=== PATIENT | female | born 1985 | race Caucasian/White ===

== ENCOUNTER 2023-03-22 08:00 | Outpatient (RCR) | payer OTHER, SELFPAY ==
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
[2023-03-22 12:04] VITALS: BP 143/93; PULSE 70
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
--- NOTE | 2023-03-22 12:28 | BH.DR.ITP ---
Initial Treatment Plan Patient Information Visit Information: ADMISSION DATE: EXPECTED LOS: 4-6 weeks Problems/Symptoms Problem #1:: Depression Symptom:: Sadness, hopelessness, worthlessness, biological disruption of sleep and appetite, fatigue, decreased concentration, guilt, passive thoughts of Problem #2:: Anxiety Symptom:: Worry, rumination, panic attacks
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
--- NOTE | 2023-03-23 09:05 | BH.SGPN.GN ---
Behaviors/Verbalizations/Mental Status: [] Eye contact is good. Motor activity is appropriate. Appearance is casual. Speech is Appropriate. Mood is depressed. Affect is congruent. Thoughts are linear and logical. No evidence of psychosis. Reviewed daily check in sheet and no reports of suicidal ideations or intent. Client Response/Progress/Benefit: [] Pt was an active participant in group discussion. Attentive. Daily symptom tracker notes 4/5 for depression and irritability. Also notes 1/5 for self-harm urges. Tearful at times during her check-in. It has been challenging for her to manage daily tasks especially when things do not go as planned. Has responsibilities she feels compelled to complete despite her mental health struggles. As this is her first process group she shared a little about herself and her reasons for entering IOP with peers. Limited progress noted as this was her second day in IOP. Group provided support, encouragement, and feedback on what to expect her first day/week in IOP which was beneficial. Will continue in IOP to prevent decompensation, stabilize mood, and improve functioning. Narrative Note: []
--- NOTE | 2023-03-23 10:20 | BH.SGPN.GN ---
Behaviors/Verbalizations/Mental Status: []Pt alert and oriented, neatly dressed and groomed. Eye contact good. Motor activity appropriate. Speech within normal limits. Affect congruent, mood engaged and anxious. Thoughts linear, logical, no signs of hallucinations or delusions. Client Response/Progress/Benefit: [] Client connected with topic of Anxiety and participated throughout, providing input and taking notes. Participated throughout interactive discussion defining anxiety and identifying cognitive and physiological symptoms of anxiety. Group discussed how anxiety can prevent them from trying new things. Common physical and cognitive symptoms identified by group included: ?what if thoughts?, ?fear of failure?, negative self-talk, increased heart rate, restlessness, and getting sick more frequently. Pt stated she has noticed a lot more health issues arise due to her anxiety. Benefited from increased awareness and insight on anxiety and its impact. Pt will continue IOP tx to prevent decompensation, improve daily functioning, and gain healthy coping skills. Narrative Note: []
--- NOTE | 2023-03-23 11:15 | BH.SGPN.GN ---
Behaviors/Verbalizations/Mental Status: []Pt alert and oriented, casual appearance. Eye contact fair. Motor activity appropriate. Speech within normal limits. Affect constricted, mood anxious. Thoughts linear, logical, no signs of hallucinations or delusions. Client Response/Progress/Benefit: [] Pt was an active participant AEB pt providing input and listening attentively to peers. Attentive during psychoeducation on mindfulness coping skills and their impact on reducing anxiety and improving overall mental health wellness. Group was able to identify self-soothing and mind-based coping skills which included: 5-senses, meditation, deep breathing, journaling, and progressive muscle relaxation. Pt also participated with peers in practicing mindfulness skills in session. Pt would like to work on fresh air, mindful eating, yoga, and progressive muscle relaxation to help manage anxious symptoms. Appeared to benefit from increasing repertoire of anxiety reduction skills. Pt will continue in [facility] tx to continue building healthy coping skills, challenge distorted thoughts, and prevent decompensation.
--- NOTE | 2023-03-24 13:22 | BH.COMM ---
Communication Note Communication with Client Communication Note: Group was cancelled today due to not enough group members attended today. Met with client to gather background information, identify treatment goals, and build rapport. Client stated she is so far enjoying the program because she has already learned a lot in just attending for 2 days. Client reported she is struggling with adjusting to finding out her wants a divorce 6 weeks ago. 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 Client stated her is living in an apartment that is next door to her record shop which she states complicates her situation. Client reported it has been a challenge knowing her is next door to her while she is struggling to function. Client stated she is able to complete basic responsibilities and is able to take care of her three children. Client connected with psychoeducation about cognitive triangle and behavior activation. client stated she hasn't been engaging in activities she used to enjoy prior to 6 weeks ago. Client reported she used to go to yoga weekly, but hasn't gone in the last 3 months. 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 client reported yesterday she was able to have a successful event at her shop and made herself dance before she closed down. Client connected how using opposite action last night helped improve her mood. Client stated she hasn't been going to yoga because she fears that she will emotionally break down during class because she is feeling very vulnerable. Client worked with therapist to develop plan to do a yoga session at her house this weekend and will work towards getting back to the yoga studio. Client stated while in IOP she would like to learn how to manage her anxious and depressed symptoms. Client reported she needs to learn who she is now that her relationship is ending because she saw part of her identity for the last 20 years as .
--- NOTE | 2023-03-24 13:35 | BH.MTP ---
Master Treatment Plan Patient Information Program Physician:: Dr. White Primary Therapist:: Mary Tolentino, [facility] Psychiatric Diagnoses Psychiatric Diagnoses:: 1. Major depressive disorder, recurrent, severe without psychosis 2. Panic disorder 3. Primary support, work and financial issues Diagnosis Code(s):: F33.2 Estimated LOS Estimated LOS (in weeks):: 6 Problem/Goal #1 Problem/Goal #1 Stated Goal:: Client will reduce depressive symptoms, passive thoughts of , and anhedonia due to Major Depressive Disorder through Intensive Outpatient Program. Description of Barriers: Potential barriers include negative thinking, anxious thought patterns, and stress over navigating relationship loss. Functional Impact: The patient is a 37-year-old female who has been for 14 years who has a history of depression and anxiety. She was referred by a friend for worsening symptoms in the past month. The patient's worsening of symptoms was triggered by her announcing that he was unhappy in their marriage and leaving 6 weeks ago. The patient was surprised by this and is having a hard time adjusting. She is having a hard time functioning at work and is having a hard time getting her activities of daily living accomplished at home. She admits to sadness and crying. She also endorses hopelessness, worthlessness, guilt and decreased concentration. She has low energy and decreased appetite and has lost 10 pounds in the past 6 weeks. Her sleep has decreased to about 3 to 5 hours a night and she is tired during the day. Objectives Objective #1: Stated Objective: Client will learn and utilize 2-3 healthy coping strategies to manage depressive symptoms. Interventions: Therapist will utilize CBT techniques to assist client with understanding the connection between thoughts, feelings and behaviors. Education will be provided on behavioral activation. Therapist will assist client in learning internal coping strategies to manage depressive symptoms, along with helping client identify triggers. Discharge Criteria: Client will have achieved this goal when can verbalize and has practiced at least 2 healthy coping strategies that successfully manage depressive symptoms. Target Date: 05/03/23 Review Date: 04/19/23 Objective #2: Stated Objective: Client will identify and replace 2-3 negative thinking patterns that reinforce depressive symptoms. Interventions: Therapist and group therapy will assist client in developing an awareness of the cognitive messages that reinforce depressive thinking. Therapist will also assist client in challenging negative thinking patterns. Discharge Criteria: Client will have achieved this goal when can identify at least 2 negative thinking patterns, replace negative thinking with more positive, affirmative messages. Target Date: 05/03/23 Review Date: 04/19/23 Problem/Goal #2 Problem/Goal #2 Stated Goal:: Client will reduce overall frequency, intensity, and duration of the anxiety so that daily functioning is not impaired.? Description of Barriers: Potential barriers include negative thinking, anxious thought patterns, and stress over navigating relationship loss. Functional Impact: The patient is a 37-year-old female who has been for 14 years who has a history of depression and anxiety. She was referred by a friend for worsening symptoms in the past month. The patient's worsening of symptoms was triggered by her announcing that he was unhappy in their marriage and leaving 6 weeks ago. The patient was surprised by this and is having a hard time adjusting. She is having a hard time functioning at work and is having a hard time getting her activities of daily living accomplished at home. She admits to sadness and crying. She also endorses hopelessness, worthlessness, guilt and decreased concentration. She has low energy and decreased appetite and has lost 10 pounds in the past 6 weeks. Her sleep has decreased to about 3 to 5 hours a night and she is tired during the day. Objectives Objective #1: Stated Objective: Client will learn and implement 2-3 calming skills to reduce overall anxiety and manage anxiety symptoms. Interventions: Therapist and group sessions will help client identify physiological warning signs of anxiety, increase awareness of thoughts that increase anxiety, and identify behaviors that reinforce anxious symptoms. Group and individual counseling will teach client calming skills to help manage anxious symptoms. Discharge Criteria: Client will have achieved this goal when can verbalize at least 2 calming skills and reports skills successfully help reduce anxious symptoms. Target Date: 05/03/23 Review Date: 04/19/23 Objective #2: Stated Objective: Pt will decrease anxious symptoms AEB pt?s score on the DSM 5 cross-cutting measure improve pt?s daily functioning. Interventions: Through groups and individual therapy, pt will be provided education about anxiety?s impact on body and common physiological reaction to anxiety. Therapist will teach pt appropriate breathing techniques and build healthy coping skills to manage daily anxieties. Discharge Criteria: Pt will have met this goal when pt?s score on the DSM 5 cross cutting measure for anxiety has been decreased and per pt?s report daily functioning has improved. Target Date: 05/03/23 Review Date: 04/19/23
--- NOTE | 2023-03-27 09:05 | BH.SGPN.GN ---
Behaviors/Verbalizations/Mental Status: [Patient was alert and oriented, appropriately dressed and groomed. Eye contact was good, motor activity normal, speech within normal limits. Affect congruent, mood content. Thoughts linear, logical, no signs of hallucinations or delusions. Reviewed Patients symptom tracker and the patient reports depressed mood, anxiety/panic attacks, agitation/irritability/anger, self-harm risk, and thoughts/risk of suicide within normal limits.] Client Response/Progress/Benefit: [Patient was engaged and open to the discussion. Patient reported her mood to be ?fragile?. 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 Patients second win is that she took her daughters to her parents? house for dinner and that it went well. 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 Patient was interactive and respectful with other group members about their mental wins and stressors. Patient benefited from the discussion by listening to feedback and giving input on her peer?s stressors and mental health wins. Patient will continue with IOP treatment to help develop healthy skills, promote mood stability, and improve distress tolerance. ] Narrative Note: []
--- NOTE | 2023-03-27 10:15 | BH.SGPN.GN ---
Behaviors/Verbalizations/Mental Status: []Eye contact is good. Motor activity is appropriate. Appearance is casual. Speech is Appropriate. Mood is depressed and engaged. Affect is congruent. Thoughts are linear and logical. No evidence of psychosis Client Response/Progress/Benefit: [] Pt was an active participant in group discussions AEB listening attentively to others and providing feedback at times. Participated in and was engaged during experiential activity. Able to relate activity to group topic of FOF. Engaged during interactive discussion on what failure means to the group in which peers identified and defined failure. Group was able to identify impact of fear of failure on mental health. Attentive during interactive discussion on the role that FOF plays in mental wellness, depression, anxiety, and growth. Pt reported fear of failure has kept pt stuck in her life at times. Benefited from increased awareness of how the role that FOF plays in mental health and decision-making. Will continue in IOP to prevent decompensation, improve daily functioning, and combat distorted thinking patterns. ? Narrative Note: []
--- NOTE | 2023-03-27 11:15 | BH.SGPN.GN ---
Behaviors/Verbalizations/Mental Status: []Pt alert and oriented, casually dressed and groomed. Eye contact good. Motor activity appropriate. Speech within normal limits. Affect congruent, mood depressed and anxious. Thoughts linear, logical, no signs of hallucinations or delusions. Client Response/Progress/Benefit: [] Pt responded well to session, engaged in the experiential activity and attentive throughout group processing. Pt reported fear of failure has kept Pt from healing and coping with the end of her marriage. Pt completed fear of failure worksheet and was able to identify thoughts and behaviors that reinforce personal fear of failure including self-doubt, over-reliance on past life, and staying stuck in the what if mindset. Pt participated in group discussion regarding strategies to overcome fear of failure. Identified wanting to work on practicing positive self-talk and focusing on giving herself credit for each moment of progress she makes. Appeared to benefit from increased knowledge of strategies to combat fear of failure and gaining self-awareness. Pt will continue IOP tx to improve mood stability, reduce negative thinking, and prevent decompensation. Narrative Note: []
--- NOTE | 2023-03-30 10:15 | BH.SGPN.GN ---
Behaviors/Verbalizations/Mental Status: []Pt alert and oriented, casually dressed and groomed. Eye contact good. Motor activity appropriate. Speech within normal limits. Affect congruent, mood anxious and depressed. Thoughts linear, logical, no signs of hallucinations or delusions. Client Response/Progress/Benefit: []Pt was an active participant in group discussion and activity. Attentive during psychoeducation. Along with peers, pt was able to identify barriers to taking action in their life. Identified several symptoms and stressors that she feels are holding her back from progress such as codependency, putting other's needs before her own, denial, and unrealistic expectations of herself and others. Stated these things have kept pt from making healthy changes, remaining in an unhealthy relationship and now struggling to cope with it's end, as well as not taking chances for herself. Pt shared that she wants to begin addressing the impact denial and putting other's first has had on her ability to take action. Benefited from increased self-awareness of obstacles. Will continue IOP tx to improve mood management, promote consistent skill application, and further reduce negative thinking. Narrative Note: []
--- NOTE | 2023-03-30 16:06 | BH.MDN_ITS ---
Multi-Disciplinary Note Note 60-min Individual: Time Started:: 11:10 Date: 03/30/23 Purpose of session/treatment goals addressed:: Purpose of session was to address goals 1 and 2 from MTP. 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 Client stated she follow through with plan discussed earlier with therapist to go to [place] the night before and have her stay with the kids to give her time in the morning to prepare to be on the news. Client reported following the news clip she felt very positive and was doing well. Client stated her mood dropped after having a meeting with her and their traveling accountant about their businesses. Client reported she is having a difficult time when she is around him to not get emotional and go off on him. Client reported this is not who she is in regards to having arguments and yelling at others but she is having a hard time processing these intense emotions because is not something she is ever experienced. Client stated her 's lack of reaction and appearance of being fine during the separation adds an additional layer of sadness and frustra tion and anger. Client could connect that they are both in very different places in regards to the relationship and from her perspective her has always kept her arms of the way so their attachment to each other is likely different. Client shared that her and also has struggled with alcohol use since he was in his teens. Client stated she did not start to talk about his heavy use of alcohol into the last couple years because it has gotten worse in which she drinks daily and was drinking at work. Client reported in the last couple months she has been more vocal about wanting him to go to rehab and get treatment. 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 Client stated the neck very next day her packed up and told her that he was done with the relationship. Client connected with psychoeducation about the impact of alcohol on neurobiology and how when someone is addicted to his substance that substance becomes there everything. Client stated he started to connect the negative impact his alcohol use throughout their marriage has negatively impacted the relationship. Client reported in the past she was able to manage his use and did not always see obvious consequences to it. Client stated more recently she was able to see how his alcohol use likely contributed to him not being able to tattoo or do art anymore and ultimately ended in him signing away the shop ownership to somebody else. Client stated she is really having a hard time accepting that he does not want to get treatment to help himself which then would help the relationship. Client reported she continues to struggle with figuring out who she is without him. Client stated her emotions are so intense that she does not know what to do with them and has panic attacks that hinder her ability to function. Client stated she is more open to starting a medication that could benefit her when the anxiety is starting to increase to uncontrollable amounts. Therapist encouraged client to focus on what is within her control currently and focus on what she needs to maintain her basic needs at this point. Client agreeable to continue routine of getting back into yoga at home, dancing, listening to music, and eating 3 meals a day. Risks/Concerns:: Denies suicidal ideation, plan, and intention. Identifies her 3 daughters to be protective factors. Future oriented. Progress Toward Goals/Plan:: Progress is variable. Client is still processing recent separation from her and is having erratic mood shifts throughout her day. Client continued to have panic attacks associated with the loss of this relationship. 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 Plan is for client to discuss starting medications with the [facility] psychiatrist. Client to continue IOP to continue support, build healthy coping skills, and prevent decompensation. Time Stopped:: 12:30
--- NOTE | 2023-04-03 09:05 | BH.SGPN.GN ---
Behaviors/Verbalizations/Mental Status: [Patient was alert and oriented, appropriately dressed and groomed. Eye contact was good, motor activity normal, speech within normal limits. Affect congruent, mood content. Thoughts linear, logical, no signs of hallucinations or delusions. Reviewed Patients symptom tracker and the patient reports depressed mood, anxiety/panic attacks, agitation/irritability/anger, self-harm risk, and thoughts/risk of suicide within normal limits.] Client Response/Progress/Benefit: [Patient was engaged and open to the discussion. Patient reported her mood to be ?content?. 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 Patients second win was that she has reflected on herself in the past 2 weeks and has realized that she has made progress and has been feeling the affects of group and sessions. Patients stressor was that she had to confront someone her and her has been friends with about something and this was hard for her. Patient was interactive and respectful with other group members about their mental wins and stressors. Patient benefited from the discussion by listening to feedback and giving input on her peer?s stressors and mental health wins. Patient will continue with IOP treatment to help develop healthy skills, promote mood stability, and improve distress tolerance. ] Narrative Note: []
--- NOTE | 2023-04-03 10:10 | BH.SGPN.GN ---
Behaviors/Verbalizations/Mental Status: []Pt alert and oriented, casually dressed and groomed. Eye contact good. Motor activity appropriate. Speech within normal limits. Affect congruent, mood euthymic. Thoughts linear, logical, no signs of hallucinations or delusions. Client Response/Progress/Benefit: []Pt was an active participant during interactive group discussions. Attentive during psychoeducation on the six types of boundaries. Pt along with peers contributed to interactive discussion on defining what a boundary is and group identified challenges to setting boundaries. Group reviewed the 6 types of boundaries. Pt shared boundaries are hard for her because it is easier to address the needs of others. Pt stated she recognizes boundaries are important for improved relationships. Pt benefited from increased awareness and insight on the importance/benefit to setting health boundaries. Will continue IOP tx to improve confidence, challenge distortions, and prevent decompensation.
--- NOTE | 2023-04-03 11:15 | BH.SGPN.GN ---
Behaviors/Verbalizations/Mental Status: []Pt alert and oriented, casually dressed and groomed. Eye contact good. Motor activity appropriate. Speech within normal limits. Affect congruent, mood content. Thoughts linear, logical, no signs of hallucinations or delusions. Client Response/Progress/Benefit: [] Pt responded well to session AEB listening attentively to peers and providing input throughout. Pt attentive during psychoeducation on the different boundary styles. Pt identified she tends to be more porous as pt takes on other people?s problems and tries to fix them. Pt was given a handout on strategies for healthy boundary setting. Identified wanting to practice being assertive with her needs ?because I do care? and to remind herself of the reasons why she is setting boundaries. Appeared to benefit from increasing insight to boundary setting and the impacts on mental health. Seemed to benefit from increased awareness of boundary styles and strategies to improve setting boundaries. Will continue IOP tx to improve mood stability, reduce negative thinking patterns, and increase self-compassion strategies. Narrative Note: []
--- NOTE | 2023-04-05 10:15 | BH.SGPN.GN ---
Behaviors/Verbalizations/Mental Status: []Pt alert and oriented, casually dressed and groomed. Eye contact good. Motor activity appropriate. Speech within normal limits. Affect congruent, mood euthymic. Thoughts linear, logical, no signs of hallucinations or delusions. Client Response/Progress/Benefit: [] Pt receptive of session, actively engaged throughout AEB taking notes, providing input, and contributing in small group discussion. Appeared to connect with group topic of cognitive distortions and the impact of thought patterns on mental health, coping behaviors, and relationships. Pt connected most with distortions of personalizing, shoulds, and over-generalizing. Pt reports she is getting better with catching her negative thinking patterns. Pt able to identify how these distortions impact functioning. Pt appeared to benefit from gaining insight on distorted thinking patterns and how this impacts overall mental health. Will continue IOP tx to prevent decompensation, improve daily functioning, and increase distress tolerance skills. Narrative Note: []
--- NOTE | 2023-04-05 11:15 | BH.SGPN.GN ---
Behaviors/Verbalizations/Mental Status: [] Eye contact is good. Motor activity is within normal limits. Appearance is casual. Speech is Appropriate. Mood is depressed and anxious. Affect is congruent. Thoughts are linear and logical. No evidence of psychosis. Client Response/Progress/Benefit: [] Pt was an active participant during group discussions and activity. Pt was placed in a smaller group and participated in quiz-show format in which small groups competed against each-other to answer questions based on identifying, challenging, and reframing cognitive distortions. Pt was engaged in the smaller group, participated in group interactions to brainstorm answers, and appeared to be comprehending cognitive distortions. Stated learning that ?I think I use the distortion of 'jumping t conclusions' for safety, but it seems to actually set me up for disappointment?. Benefited from gaining further insight and awareness of cognitive distortions as well as practicing ways to reframe and challenge thoughts. Will continue in IOP to promote use of behavior activation skills, stabilize mood, and improve ability to function. Narrative Note: []
--- NOTE | 2023-04-05 11:42 | PCM.BH.PN ---
Progress Note Progress Note: History of Present Illness/Interim History: The patient is a 37-year-old female who has been for 14 years and has a history of depression and anxiety. I last saw the patient 2 weeks ago when she is seen in follow-up today at the [facility] behavioral health IOP. 2 weeks ago the patient refused any medication as she wanted to just work on the therapy aspect. However according to the staff last week the patient struggled and did call the IOP a number of times for extra support. The patient states today that she feels she is learning valuable skills in the program but she is still somewhat overwhelmed by the fact that her left her and her 3 kids 8 weeks ago and wants to at least remain legally . 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 She still has crying spells but feels that overall she is able to function better lately according to the patient. She states that she is eating better and her weight is stable now and she is no longer losing weight. She does have initial insomnia only and she is sleeping about 5 to 6 hours a night but it takes her an hour or 2 to get to sleep sometimes. She has not had any panic attacks since last week and was having them once a day. She denies passive thoughts of for the past week now. She denies also suicidal ideation, plan for suicide, homicidal ideation, hallucinations or delusions. Current Psychiatric Medications: [] None Mental Status Examination: [] The patient is a 37-year-old female who appears normal for stated age and is casually dressed and groomed with good hygiene. She has 2 tattoos visible still on her neck and under her chin. She has no psychomotor agitation or retardation and is ambulatory with a normal gait. She is cooperative and pleasant during the interview. Eye contact is good and speech is normal rate and rhythm and fluent with no pressure. Mood is depressed and anxious. Affect is constricted. Thought process is goal-directed and organized. Thought content: There is no evidence of passive thoughts of , suicidal ideation, plan for suicide, homicidal ideation, hallucinations or delusions. Reality testing is intact. Judgment is intact. Insight is fair and improving. Impulsivity is low. Diagnoses: [] 1. Major depressive disorder, recurrent, severe without psychosis 2. Panic disorder 3. Primary support, work and financial issues Plan: [] The patient will continue the IOP in behavioral health at [facility] as the structure, support, education and group therapy will hopefully prevent worsening of the patient's symptoms which could require hospitalization. She felt safe during the interview and if it anytime she does not feel safe she will let us know or go to the emergency room. The risk, options, possible complications and side effects of the medications were discussed with the patient and she understands and accepts these. She was unable to find the name of the medication she took in 2016 that made her feel like a zombie. She obtained her TSH and vitamin D levels but we have not received the results from [facility]. She will continue to decrease caffeine use after 12 noon and eliminate it completely. She agrees to try Lexapro 5 mg p.o. daily and prescription is sent in for this. I will see the patient in follow-up in 2 weeks and she will continue to follow-up with her outpatient providers.
--- NOTE | 2023-04-05 15:45 | BH.MDN_ITS ---
Multi-Disciplinary Note Note 60-min Individual: Time Started:: 09:05 Date: 04/05/23 Purpose of session/treatment goals addressed:: Purpose of session was to address goals 1 and 2 from MTP. Eye Contact:: Good Motor Activity:: Restless Appearance:: Neat and Casual Speech:: Appropriate Mood:: Anxious and Other (sad) Affect:: Congruent Thoughts:: Linear, Logical and No evidence of hallucinations/delusions noted Staff Interventions:: CBT techniques, rapport building, strengths perspective, goal setting and taught coping skills (positive affirmations. 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 Client stated although she is not back to herself she was able to manage her emotions throughout those situations and not have a panic attack or emotional breakdown. Client stated on Monday which was her birthday she did struggle more emotionally because it took a while before her reach out to her to wish her happy birthday and it is her first birthday of them not being together. Client stated she did send some angry text towards him and is frustrated with herself because how she is responding to him is not who she is. Client reported in the moment she really struggles with managing her emotions and then in reflection realizes what she did was not helpful. Client stated yesterday was the first day in a long time in which she felt like she lived a full day without having a panic attack or emotional breakdown. 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 Client reports she is feeling a little better today but still struggling with the roller coaster of emotions. Client said she thinks it be beneficial for her to work on her view of self and confidence because she realizes she put a lot of her worth into her relationship and now that the relationship is ending she does not feel confident with most of the things in her life. Client gave example on Monday after group she was in the other store but she drove to 3 different stores because she could not be confident in the decision she was making a list or to go to. Client stated in the past when she was with her he would tell her what store she should go to which would validate her decision. Client agreed she needs to really focus on internal validation by starting small with decision making in regards to what store to go to for groceries. Client worked with therapist to develop a positive affirmation that she will post in her car that she consider herself when she goes to make a decision. Client wrote down her affirmation on a Post- it note and stated she will put it in her car today. Client also agreeable to identify several skills that she would like to utilize a more consistent basis by putting on a daily chart and when she comes in IOP she will gloria which days she utilized that skill or strategy. Client identified for this week her skills will be yoga, connection, breathing and mindfulness, and journaling. Risks/Concerns:: Denies suicidal ideation, plan, and intention. Future oriented. Identifies daughters as reasons to live. 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 Client still struggles with the roller coaster of emotions related to the separation from her . Client engaging in more aggressive style communication when feeling hurt and frustrated by her . Client stated her response to him is uncharacteristic of her and she really wants to work on managing her emotions more effectively when triggered. Plan is to build confidence in her decision making and decreased need for external validation. Client to continue IOP to continue building healthy coping skills, build confidence, and prevent decompensation. Time Stopped:: 10:10
== END 2023-04-05 23:59 ==
LOC: BHIOP 08:00
PROVIDERS: PCP Registered Nurse; Referring Provider Psychiatry & Neurology Psychiatry; Visit Provider Psychiatry & Neurology Psychiatry
DX: F33.2 Major depressive disorder, recurrent severe without psychotic features (principal); F41.0 Panic disorder [episodic paroxysmal anxiety]
CPT/HCPCS: S9480; 90837; 90853

== ENCOUNTER 2023-04-06 07:50 | Outpatient (RCR) | payer OTHER, SELFPAY ==
[2023-04-06 00:59] VITALS: BP 143/93; PULSE 70
--- NOTE | 2023-04-10 10:10 | BH.SGPN.GN ---
Behaviors/Verbalizations/Mental Status: []Pt alert and oriented, causally dressed and groomed. Eye contact good. Motor activity appropriate. Speech within normal limits. Affect congruent, mood euthymic. Thoughts linear, logical, no signs of hallucinations or delusions. Client Response/Progress/Benefit: [] Pt was actively engaged, providing input, and taking notes throughout session. Connected with the topic of pitfalls and listened to group discussion on internal and external barriers that prevent from choosing a healthier path to mental wellness. Group worked together to identify examples of personal internal pitfalls and pt identified theirs as all or nothing thinking, self-doubt, co-dependency, and low self-worth. Pt benefited from group as pt learned to better identify and normalize potential barriers to improving mental health symptoms. Pt also gained awareness of the difference between external triggers and self-sabotaging behaviors. Pt will continue IOP tx to continue use of healthy coping skills, improve view of self, and prevent decompensation.
--- NOTE | 2023-04-10 10:19 | BH.MDN ---
Multi-Disciplinary Note Note 45-min Individual: Time Started:: 09:02 Date: 04/10/23 Purpose of session/treatment goals addressed:: Purpose of session was to address goals 1 and 2 from MTP. Eye Contact:: Fair Motor Activity:: Appropriate Appearance:: Casual Speech:: Appropriate Mood:: Dysthymic Affect:: Constricted Thoughts:: Linear, Logical and No evidence of hallucinations/delusions noted Staff Interventions:: thought challenging, psychoeducation on: (codependency), CBT techniques, strengths perspective and other (reviewed coping skills) Client Response:: Client reported since last week she has been doing overall better with daily functioning. Client stated she has been able to engage with her kids and function at work. Client stated she still has moments in which she feels very sad and angry about the separation but the last few days she has done better with not being reactive towards her . Client reported she did start her new medication last week and is still adjusting to it unsure of if it is making her feel more shaky today. Client connected with therapist encouragement to not hyperfocus on potential side effects of the medication because anxiety can often create things that are not there. Client encouraged to just keep an eye on the things like feeling shaky and keep therapist updated if she notices more potential side effects. Client stated yesterday she did feel very productive at home with cleaning and her appetite was improved. Client reported she still is anxious about having to talk to her and her scarrer about potential divorce and dissolution in terms. Client stated she is feeling more mentally ready to start thinking about that now that she is had time to process many of her emotions about the separation. Client stated she thinks she can make a more solid decision once she sees all of her options based on what her scarrer proposes to her. Client reported she did work on intensity and being more confident in her decision making in the last 5 days and did put up to sticky note of the affirmation she created last week. Client receptive to learning about codependency and connected with all of the examples of codependency. Client stated she connected most with the example investing a lot of energy and time into caring for a partner with an alcohol problem. Client could connect how codependency behaviors have impacted her own mental health and functioning. Client stated she does feel like it would be helpful for her to understand herself better now that she has to get used to being more independent away from her . Therapist provided psychoeducation about core beliefs and mistaken believes and the impact beliefs that can have on view of self and behaviors. Client stated she feels like she is in a place in which she can explore her mistaken beliefs now and believes it could really helpful for her moving forward. Client agreeable to complete provided homework in which she is to score each question provided on a scale of 0-4 with 4 meaning strongly agree and 0 meaning not at all. Risks/Concerns:: Client denies suicide ideation, plan, or intention. Future oriented. Progress Toward Goals/Plan:: Progress noted with client reporting improved functioning at home and work and improved ability in the last few days with emotion regulation especially when having to interact with her . Client continues to report still not feeling like herself but feels able to engage her rational thoughts more compared to the last few weeks when she was stuck in emotional mind. Client stated she has not had an emotional outburst towards her since last Monday which denotes progress with emotion regulation. Client is to continue IOP to work on identifying and challenging negative thought patterns, improve view of self, and prevent decompensation. Time Stopped:: 09:50
--- NOTE | 2023-04-10 11:10 | BH.SGPN.GN ---
Behaviors/Verbalizations/Mental Status: []Pt alert and oriented, neatly dressed and groomed. Eye contact good. Motor activity appropriate. Speech within normal limits. Affect congruent, mood euthymic. Thoughts linear, logical, no signs of hallucinations or delusions. Client Response/Progress/Benefit: [] Pt receptive of session, engaged throughout AEB actively contributing and listening to discussion, as well as taking notes. Pt participated in the experiential activity and processed with group how their emotions, perspective, and reactions positively and negatively impacted the outcome. Pt identified pitfalls they struggle with and shared wanting to work on pitfall of co-dependency by identifying her needs so she can verbalize them in the future. Benefited from identifying personal pitfalls and strategies to overcome these pitfalls. Will continue IOP tx to promote mood stability, reduce negative thinking patterns, and improve self-compassion. Narrative Note: []
--- NOTE | 2023-04-11 09:05 | BH.SGPN.GN ---
Behaviors/Verbalizations/Mental Status: [] Eye contact is good. Motor activity is appropriate. Appearance is casual. Speech is Appropriate. Mood is anxious. Affect is congruent. Thoughts are linear and logical. No evidence of psychosis. Reviewed daily check in sheet and no reports of suicidal ideations or intent. Client Response/Progress/Benefit: [] Pt was an active participant in group discussion. Attentive. Daily symptom tracker notes 04/10 for depression.Pt states she had a productive weekend and shared examples of completing tasks and responsibilities. Also shared that she competed assertive and direct communication with support which she has been struggling with for the past several months. Increased emotion regulation as she has difficult decisions about her future. Reports that she is not ruminating or dwelling on thoughts or stressors as often which she attributes to IOP and medications. More engaged with life and improved confidence. Progress noted per pt report. Benefited from group support, encouragement, and feedback. Will continue in IOP to stabilize mood, prevent decompensation, increase healthy coping, and improve functioning. Narrative Note: []
--- NOTE | 2023-04-11 11:10 | BH.SGPN.GN ---
Behaviors/Verbalizations/Mental Status: []Pt alert and oriented, neatly dressed and groomed. Eye contact good. Motor activity appropriate. Speech within normal limits. Affect congruent, mood euthymic. Thoughts linear, logical, no signs of hallucinations or delusions. Client Response/Progress/Benefit: [] Pt responded well to session, contributing to discussion, and engaged during the activity. Attentive during discussion on the quote. Group identified the benefits of change and worked with the group to identify barriers. Pt?s barriers to change included: uncomfortable emotions such as anxiety and fear, loss, and difficulty accepting. Pt participated along with group in activity where they identified and discussed the emotions related to change. Pt provided examples of how she has benefitted from change even though pt still struggles with managing change. Benefited from increased awareness and understanding of emotions, benefits, and barriers related to change. Pt will continue IOP tx to promote mood stability, increase healthy coping skills, and reduce negative self-talk. Narrative Note: []
--- NOTE | 2023-04-11 11:15 | BH.SGPN.GN ---
Behaviors/Verbalizations/Mental Status: [] Eye contact is good. Motor activity is appropriate. Appearance is casual. Speech is Appropriate. Mood is anxious. Affect is congruent. Thoughts are linear and logical. No evidence of psychosis. Client Response/Progress/Benefit: [] Pt responded well to session, attentive. Did well to engage in and process activity. Pt worked with group to relate the strategies used to overcome barriers in the activity to managing change in own life. Pt identified wanting to work on being more hopeful with life with recent changes. Pt identified that she is the contemplation phase. Benefited from increased awareness of changes desired and current stage of change. Will continue in IOP to prevent decompensation, increase healthy coping, and improve functioning. Narrative Note: []
--- NOTE | 2023-04-12 14:39 | BH.TPR ---
Treatment Plan Review Demographics Date of Admission:: 03/22/23 Date of Treatment Plan Review:: 04/12/23 Admitting Diagnoses:: 1. Major depressive disorder, recurrent, severe without psychosis F33.2 2. Panic disorder Current Diagnoses:: 1. Major depressive disorder, recurrent, severe without psychosis F33.2 2. Panic disorder Patient Status Patient's Response to Treatment:: Pt has responded well to session AEB consistently attending IOP and engaging in both individual and group therapy sessions. Pt consistently completes homework provided from individual counseling. Pt contributes at times during group discussions, takes notes, appears to listen to others, and engages in group activities. Status of Current Problems and Symptoms: Client's progress has been variable AEB days in which she is functioning closer to baseline and other days in which she struggles with making it into work. Client's emotions have been erratic, often connected to having to deal with her when discussing their separation. Client continues to report moderate depressed symptoms and a decrease in anxious symptoms. Decrease in anxiety symptoms could be attributed to started anxiety management medication last week. This week client has reported improved emotion regulation when dealing with her . Last week she was struggling with mood management in the moment due to intense emotions over their separation. Per client's DSM 5 cross-cutting measure her overall mental health symptoms have decreased by 63%. Progress Problem #1: Problem Name:: Depression Status of Goals:: Obj 1 - met, ongoing work encouraged. Client is able to identify healthy coping skills like opposite action, self-care, and taking a break. Client's DSM 5 cross-cutting measure at review indicates a 38% decrease in depressed symptoms. Obj 2 - not met. Client is starting to learn about distorted and negative thought patterns. This objective has not been fully addressed due to therapeutic focus has been on mood management and improving functioning. Client has not been ready to explore her negative/core beliefs. Team Recommendations:: Team recommends continued goals and objectives with focus on improving awareness of negative thoughts and building skills on how to improve thought patterns and build confidence. Problem #2: Problem Name:: Anxiety Status of Goals:: obj 1 - met. Client is able to idnentify healthy calming skills like yoga, belly breathing, and grounding. Client has started to get back into doing yoga and is practicing her breathing techniques more consistently. Client has reported improved sleep due to decrease in racing thoughts. Client has noted starting a anxiety medication has been significantly helpful. Obj 2 - met. Per DSM 5 cross cutting measure client's anxiety has decreased by 82%. Team Recommendations:: Team recommends continued goals and objectives to reinforce skills and maintain gains made.
--- NOTE | 2023-04-13 11:15 | BH.SGPN.GN ---
Behaviors/Verbalizations/Mental Status: []Pt alert and oriented, neatly dressed and groomed. Eye contact good. Motor activity appropriate. Speech within normal limits. Affect congruent, mood anxious and euthymic. Thoughts linear, logical, no signs of hallucinations or delusions. Client Response/Progress/Benefit: [] Pt receptive to session AEB contributing to small group discussion, as well as listening attentively to others, and taking notes. Worked with group to brainstorm the positive and negative aspects of stress on physical and mental health. Group did well to identify the benefits of stress as well as the impact of distress on performance, relationships, and mental health. Pt identified their personal top stressors as: the end of her marriage, the wellbeing of her kids, and finances. Pt seemed to benefit from increased awareness of current stressors and impact stress has on mental health. Recommended to continue IOP tx to promote use of healthy coping skills, improve daily functioning, and reduce negative thinking. Narrative Note: []
--- NOTE | 2023-04-13 15:17 | BH.MDN_ITS ---
Multi-Disciplinary Note Note 60-min Individual: Time Started:: 09:00 Date: 04/13/23 Purpose of session/treatment goals addressed:: Purpose of session was to address goals 1 and 2 from MTP. Eye Contact:: Good Motor Activity:: Appropriate Appearance:: Casual Speech:: Appropriate Mood:: Anxious and Other (sad) Affect:: Congruent Thoughts:: Linear, Logical and No evidence of hallucinations/delusions noted Staff Interventions:: CBT techniques, discharge planning (provided handouts for 2 different therapists located near her), strengths perspective, goal setting, taught coping skills and other (reviewed mistaken belief questionnaire. identified current core beliefs.) Client Response:: Client responded well to session as evidenced by her openly sharing thoughts and feelings. Client completed mistaken beliefs questionnaire provided in last individual session. In the questionnaire client scored a high for each mistaken belief area. Therapist and client reviewed each possible mistaken belief in client connected with each 1. Client noted the most impactful mistaken belief is my worth and security are dependent on being loved . Client became tearful when thinking about this belief because now that she is from her she is having a hard time finding her self worth. Client stated another belief that she connects with strongly is if I trust or get too close, I will lose control. Client could connect how this be lief that she has impacts his ability to believe what others say and keeps others at an arms length away. Client stated she cannot tell this core belief likely impacts her ability to leave that others are being genuine when they are giving her positive affirmation. Client worked with therapist to identify which beliefs she was identified as being strongly held beliefs that will take some convincing to not believe and which ones she intellectually realizes are not true but continued to emotionally impact her. Therapist provided client with handouts that listed numerous affirmations and for homework client agreed to highlight the affirmations that she believes and would be willing to explore further. Therapist also provided client with handouts that listed to potential therapist in her area. Therapist encouraged client to identify which therapist to be willing to work with her outpatient and contact this therapist to schedule an appointment. Risks/Concerns:: Denies suicidal ideation, plan, and intention. Future oriented. Identifies daughters as reasons to live. Progress Toward Goals/Plan:: Progress noted with client continuing to report ability to manage her emotions more effectively in the moment. Client continues to struggle at times with labile emotions when triggered about current separation from . 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 Client stated she is continuing to struggle with being triggered by unexpected things like realizing she has to sell the patio furniture and having to think about packing the house and what the process of selling will look like. Client is to continue IOP to improve view of self, continue reinforcing healthy coping skills, and prevent decompensation. Time Stopped:: 10:00
--- NOTE | 2023-04-14 11:10 | BH.SGPN.GN ---
Behaviors/Verbalizations/Mental Status: []Eye contact is good. Motor activity is appropriate. Appearance is casual. Speech is Appropriate. Mood is euthymic. Affect is congruent. Thoughts are linear and logical. No evidence of psychosis. Client Response/Progress/Benefit: []Pt was an active participant in group discussions and experiential activity. Attentive during psychoeducation on the 4 A's (Avoid, adapt, alter, accept) of coping with stress. Shared that she would benefit most from working on adapting her perspective about her current life changes. Was able to identify the connection between the experiential activity and utilization of stress management skills. Benefited from increased awareness of stress management strategies. Will continue in IOP to continue building healthy coping skills, challenge distortions, and prevent decompensation.
--- NOTE | 2023-04-17 10:10 | BH.SGPN.GN ---
Behaviors/Verbalizations/Mental Status: []Pt alert and oriented, casually dressed and groomed. Eye contact good. Motor activity appropriate. Speech within normal limits. Affect congruent, mood anxious, dysthymic. Thoughts linear, logical, no signs of hallucinations or delusions. Client Response/Progress/Benefit: []Pt was an active participant in activity and taking notes during group discussion. Attentive during psychoeducation on coping skills, why people use unhealthy coping skills, and how to replace unhealthy coping skills. Pt shared she personally struggles with minimizing to keep the peace and avoid conflict. Group came up with list of negative coping skills including not asking for help, avoidance, isolating, and sleeping. Group discussed the effects of how negative coping skills can impact mental health in a negative way. Benefited from increased understanding of unhealthy coping skills and the need for developing healthy internal and external coping skills. Pt will continue IOP tx to decrease negative thought patterns, continue improving mood stability, and prevent decompensation. Narrative Note: []
--- NOTE | 2023-04-17 11:10 | BH.SGPN.GN ---
Behaviors/Verbalizations/Mental Status: []Pt alert and oriented, casually dressed and groomed. Eye contact good. Motor activity appropriate. Speech within normal limits. Affect congruent, mood euthymic and positive. Thoughts linear, logical, no signs of hallucinations or delusions. Client Response/Progress/Benefit: []Pt responded well to session, taking notes and contributing. Group discussed the different categories of coping skills which included distraction, emotional release, grounding, self-love, and thought challenging.? Pt participated in creating a coping skills ?menu? from the five categories of coping skills. Pt's coping skill menu included: art, clean/purge items, engage senses, wins journal, and look at evidence against. Appeared to benefit from increasing repertoire of healthy coping skills. Will continue IOP tx to improve view of self, challenge distortions, and prevent decompensation.
--- NOTE | 2023-04-17 15:40 | BH.MDN ---
Multi-Disciplinary Note Note 45-min Individual: Time Started:: 09:10 Date: 04/17/23 Purpose of session/treatment goals addressed:: Purpose of session was to address: 2 from MTP. 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 Client reported she did go off on him because she felt hurt that he is able to seemingly move on after 20 years of being together. Client stated she felt bad after the fact because she went off on him in the tattoo shop because that is where his apartment is located. Client reported she apologized to the new owners of the tattoo shop because she is friends with them and made a promise that she will no longer make a scene at the shop so does not impact their business. Client stated with her friends that now that to shop she was able to make a plan on what she will do if she is finding herself building with extreme emotions. Client stated she just continues to have a difficult time with seeing how he is moving on with the changes of the relationship and how she is continuing to struggle with functioning. 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 Client reported she has been working on improving her decision making. Client reports reported she did complete her homework of which positive affirmation she connected with and believes that she could work on the here and now. Client started to process with therapist the mistaken belief my worth and security are dependent on being love . Client starting to make connections on how this belief has impacted her and that she really thinks she struggle with this for most of her life. Client stated she has always cared with others think about her. Client reported she was so focused on being with her that she did not realize that she was putting all of her worth into being in relation with him. Client starting to intellectually see how her belief is mistaken but still has a strong emotional hold on her. Therapist gave client homework to pick 2-3 of the affirmations she identified over the weekend that she can put on a sticky note and start to jot down evidence to support those affirmations. Risks/Concerns:: Denies suicidal ideation, plan, and intention. Future oriented. 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 Client did slightly regressed with having anger outburst towards her when triggered seeing him moving into his apartment with new furniture. Client has developed a plan to contact a certain friend that is located near her shop if she is to get triggered in the future. Client is starting to work through and make connections on how her mistaken believes have kept her stuck and impacted her ability to see value in herself beyond being in a relationship. Client could connect that she has molded herself throughout her 20-year relationship in order to create homeostasis in their family but is now starting to connect that in this process her needs have not been met and she lost who she is. Plan is for client to work on creating new beliefs thoughts that affirm who she is and build her confidence. Client is to continue IOP to promote healthy coping skills, continue to work on setting boundaries, improve view of self, and prevent decompensation. Time Stopped:: 10:00
--- NOTE | 2023-04-19 10:00 | BH.SGPN.GN ---
Behaviors/Verbalizations/Mental Status: [] Client alert and oriented, casually dressed and groomed. Eye contact good. Motor activity appropriate. Speech within normal limits. Affect congruent, mood euthymic. Thoughts linear, logical, no signs of hallucinations or delusions. Client Response/Progress/Benefit: [] Client responded well to session AEB sharing and listening attentively to others. Group provided examples of benefits of having social support, including: ability to process emotions with, security, and community. Client also participated in group discussion regarding the barriers to accessing support including personal examples like: self sabotage, lack of communication, and over using certain supports. Client participated in experiential activity illustrating the impact communication, boundaries, and patience play in creating healthy support systems. Client appeared to benefit from increased knowledge of the benefits of social support and greater self-awareness. Will continue IOP tx to prevent decompensation and improve overall functioning. Narrative Note: []
--- NOTE | 2023-04-19 11:05 | BH.MDN ---
Multi-Disciplinary Note Note 60-min Individual: Time Started:: 08:45 Date: 04/19/23 Purpose of session/treatment goals addressed:: Purpose of session was to check-in with pt as she arrived to IOP group tearful and indicated elevated scores for SI on the daily sx tracker. Eye Contact:: Fair (often looking down or crying into hands) Motor Activity:: Appropriate Appearance:: Casual Speech:: Appropriate Mood:: Depressed Affect:: Congruent Thoughts:: Linear, Logical and No evidence of hallucinations/delusions noted Staff Interventions:: thought challenging, strengths perspective and other (emotion validation and support) Client Response:: Client receptive of meeting with this therapist as her usual therapist is out for the day. Pt was tearful throughout session and stated multiple times ?I just can?t do this. I can?t do this anymore?. Upon further inquiry, pt revealed these statements are associated with feeling overwhelmed by navigating the various stressors associated her ongoing divorce. Denies wanting to , stating she just doesn?t want to continue to feel the way she has been. Pt?s children and professional goals for her future are protective factors. Denies any intent. Pt expressed hopelessness, worthlessness, guilt, and anger. Described guilt associated with the impacts of the divorce on their children and having to switch school districts. Went on to discuss anger regarding the ease in which her soon to be ex- seems to be managing the end of their marriage, while pt is having such emotional and logistical difficulties. Expressed, ?He?s so good at all this, he has the upper hand, and I don?t know how to do anything?. Pt did well to work with therapist to challenge thought distortions negatively impacting her mood and confidence. With some coaching pt was able to identify several positive steps she has taken in the last few weeks to better manage her emotions and navigate various stressors. Pt identified that she is reaching out to supports and learning how to navigate the logistical aspects of divorce, despite struggling with feelings of incompetence. Additionally identified improved self-care, challenging negative core beliefs that reinforce codependency, as well as learning and implementing healthy communication, emotion regulation, and boundary setting skills. Pt calmer and no longer crying by end of session, expressed benefitting from emotional support and processing. Identified plans to establish more concrete expectations and boundaries with her when he comes to visit the children, as this is often a trigger for pt. Shared that she would be willing to consider spending time engaging in self-care during visitation times to limit contact with him as well. Pt reports feeling more stable and able to go into group for the day. Will follow-up with regular therapist tomorrow. Risks/Concerns:: Pt reported SI of 4/5 upon arrival for group today. However, denies active suicidal ideation, plan, or intention following session. Reports SI was more focused on no longer wanting to struggle with navigating her emotional pain and responses associated with ongoing divorce. Pt denies intention or plan and feels able to maintain safety. Identifies daughters and professional goals as significant protective factors for her. Future oriented and plans to attend IOP tx tomorrow. Progress Toward Goals/Plan:: Some regression. Client is experiencing significant difficulties in maintaining mood stability due to ongoing stressors related to her recent separation from her , Pt is consistently engaging in self-care, thought challenging, and reaching out to supports. She is actively engaged in the treatment process; however, continues to struggle with negative core beliefs, emotion regulation when facing unexpected stressors or triggers related to the end of her marriage, and guilt. Pt to continue IOP to stabilize mood, improve confidence, and prevent decompensation. Time Stopped:: 09:45
--- NOTE | 2023-04-19 12:10 | PCM.BH.PN ---
Progress Note Progress Note: History of Present Illness/Interim History: The patient is a 37-year-old female who is seen in follow-up at the [facility] behavioral health [facility] where she is being treated for depression and anxiety. Last saw the patient 2 weeks ago and at that time she was started on Lexapro 5 mg daily. The patient states that she is tolerating the medication well and felt that it has taken the edge off a little bit . Her GI issues have improved and she is enjoying the IOP program and feels she is learning valuable skills to help with her mental health issues. 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 She regrets her anger at him and states that the fact that she was angry with him has caused her mood to get more depressed in the last day or 2. Her sleep is improving as she cut down on her caffeine intake. She had a panic attack several days ago due to some of the above stressors. She endorses passive thoughts of and passive suicidal ideation when she became angry at her in the last few days but says that she would never commit suicide as she would never want to leave her children. The suicidal ideation and passive thoughts of have resolved and are not present today. Current Psychiatric Medications: [] Lexapro 5 mg p.o. daily (x 2 weeks) Mental Status Examination: [] The patient is a 37-year-old female who appears normal for stated age and is casually dressed and groomed with good hygiene. She has 2 tattoos visible on her neck and under her chin. She has no psychomotor agitation or retardation and is ambulatory with a normal gait. She is cooperative during the interview and is tearful at times. Eye contact is good and speech is normal rate and rhythm and fluent with no pressure. Mood is anxious and depressed. Affect is constricted and tearful at times. Thought process is goal-directed and organized. Thought content: There is no evidence of passive thoughts or suicidal ideation today. There is no evidence of plan for suicide, homicidal ideation, hallucinations, delusions or ayaan. Reality testing is intact. Judgment is intact. Insight is fair and improving. Impulsivity is moderate. Diagnoses: [] 1. Major depressive disorder, recurrent, severe without psychosis 2. Panic disorder 3. Primary support, work and financial issues Plan: [] The patient will continue the IOP in behavioral health at [facility] as the structure, support, education and group therapy will hopefully prevent worsening of the patient's symptoms which could require hospitalization. She felt safe during the interview and if it anytime she does not feel safe she will let us know or go to the emergency room. The risk, options, possible complications and side effects of the medication were again discussed with the patient and she understands accepts these. She agrees to increase her Lexapro to 10 mg p.o. daily. She agrees to try not to ruminate negatively and get down on herself when she becomes angry at her soon-to-be ex-. She will follow-up with outpatient providers and I will see the patient in follow-up in 2 weeks. Prescription is sent in for the Lexapro.
--- NOTE | 2023-04-20 10:05 | BH.SGPN.GN ---
Behaviors/Verbalizations/Mental Status: []Pt alert and oriented, neatly dressed and groomed. Eye contact good. Motor activity appropriate. Speech within normal limits. Affect congruent, mood engaged. Thoughts linear, logical, no signs of hallucinations or delusions. Client Response/Progress/Benefit: [] Pt was engaged and open to the discussion and appeared to respond well to the group. Pt used active listening and gave feedback during group discussion. Group discussed what contributes to a person?s perspective and how perspective can positively or negative impact mental health treatment. Pt shared their perspective today is more hopeful now, but pt was struggling earlier this week. Pt stated coming to group and taking care of her basic needs helped shift pt?s perspective. Pt appeared to benefit from increasing awareness of different perspectives and how they can affect mental health. Pt will continue IOP treatment to improve daily functioning, reduce negative self-talk, and continue to improve emotional regulation skills. ? Narrative Note: []
--- NOTE | 2023-04-20 11:15 | BH.SGPN.GN ---
Behaviors/Verbalizations/Mental Status: []Pt alert and oriented, casually dressed and groomed. Eye contact good. Motor activity appropriate. Speech within normal limits. Affect congruent, mood depressed. Thoughts linear, logical, no signs of hallucinations or delusions. Client Response/Progress/Benefit: []Pt was attentive and contributed to group discussion. Pt worked with group to identify strategies that can help with challenging negative perspective. Pt completed strengths exploration worksheet, identifying open mindedness, kindness, patience, humor, and empathy as personal strengths. Pt able to acknowledge how these strengths are helping pt and can continue to help pt in mental health journey. Pt identified wanting to work on reminding herself to step away and then come back to it later as a means of perspective challenging. Benefited from identifying personal strengths and strategies for enhancing use of identified strengths. Pt will continue IOP tx to promote mood stability, increase consistent application of healthy coping skills, reinforce boundaries, and prevent decompensation. Narrative Note: []
--- NOTE | 2023-04-20 11:29 | BH.MDN_ITS ---
Multi-Disciplinary Note Note 45-min Individual: Time Started:: 09:30 Date: 04/20/23 Purpose of session/treatment goals addressed:: Purpose of session was to address goals 1 and 2 from MTP. Eye Contact:: Good Motor Activity:: Appropriate Appearance:: Casual Speech:: Appropriate Mood:: Dysthymic Affect:: Congruent Thoughts:: Linear, Logical and No evidence of hallucinations/delusions noted Staff Interventions:: thought challenging, psychoeducation on: (self- care), CBT techniques, mindfulness skills, strengths perspective, goal setting and taught coping skills (self-care wheel) Client Response:: Client reported the last few days have been a struggle . Client stated she was extremely emotional yesterday and needed a emergency session because she just was having a hard time managing her emotions due to various negative situations with her soon to be ex-. Client stated last night was a rough night as well because when she got home from work she witnessed her having their daughters help him move his things into his car. Client stated she chose to turn around and drive away because she knew her emotions with the best of her in the moment. Client stated she found the situation to be extremely disrespectful in not thoughtful towards how having his daughters help could be a negatively impactful to them. Client reported her then called her and was yelling at her and telling her awful things which made her feel worse. Client stated she did choose to hang up the phone because she knew listening to what he was saying would only reaffirm and we have reinforced her mistaken beliefs about herself. 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 Client stated she cannot have him being home and just laying on the couch instead of spending time with their daughters so she thinks it is best he just leaves because it does not seem to be very helpful anyways. Client and therapist work together to brainstorm ideas for how she would like roger to look like because it is her daughter's birthday. Client agreeable that whenever she decides she will text her to let him know so the expectations are clear and what she wants him to do once she gets home from work. 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 Client stated she realizes she needs to protect herself financially and cannot put off the paperwork anymore. Therapist and client discussed what boundaries need to be put in place when it comes to her including things that they talk about and what they no longer have to talk about. Client stated she has been struggling recently with engaging in self-care and realizes she needs to get back to doing that. Client reported she was struggling with identifying what self-care looks like beyond taking care of herself physically and doing yoga. Therapist provided client with a self-care wheel that provided examples that client could look at and choose which ones she wants to practice. Therapist and client work together to identify at least 1-2 self-care items she can do for each category of self-care. Client's homework is to engage in self-care, reinforce boundaries, and take time for . Risks/Concerns:: Denies active suicidal ideation, plan, or intention. Has reported more passive thoughts of in the last couple days but denies intention or plan and feels able to maintain safety. Identifies daughters as significant protective factors for her. Progress Toward Goals/Plan:: Progress variable. Client is experiencing an of roller coaster of emotions connected to the recent separation from her . Client has moments in which she does really well emotionally and productivity wong but when triggered with a significant stressors she struggles with emotion regulation. Client has been working on attempting to create new healthy core belief sets and improve confidence which could help her with moving on from her . Client getting insight and awareness of how his alcohol abuse throughout their 20 years of being together has negatively impacted her view of self and she is trying to work through that. Client is starting to set more firm boundaries with her and is doing better with soliciting and accepting help from others. Plan is for client to continue IOP to stabilize mood, continue to apply healthy coping skills consistently, and prevent decompen sation. Time Stopped:: 10:20
--- NOTE | 2023-04-25 09:00 | BH.SGPN.GN ---
Behaviors/Verbalizations/Mental Status: [] Pt alert and oriented, neatly dressed and groomed. Eye contact good. Motor activity appropriate. Speech within normal limits. Affect congruent, mood euthymic. Thoughts linear, logical, no signs of hallucinations or delusions. Reviewed pt?s symptom tracker, no risk for suicidal ideation, plan, or intent 04/25/23 Client Response/Progress/Benefit: []Pt responded well to session, attentive and engaged. Pt reports feeling drained today due to ongoing legal stress and the stress of adjusting to getting a divorce. Pt acknowledged that she is in a much better space than she was two months ago and pt can now manage her emotions and practice healthy coping skills. Pt stated she often refers to her IOP binder and she finds this beneficial in reminding pt of her coping skills. Pt also noticed she did not have any panic attacks this weekend which was progress. Pt appeared to benefit from gaining group support and processing her stressors. Pt will continue IOP tx to promote mood stability, increase self-confidence, and improve emotional regulation skills. Narrative Note: []
--- NOTE | 2023-04-25 10:15 | BH.SGPN.GN ---
Behaviors/Verbalizations/Mental Status: [] Eye contact is good. Motor activity is appropriate. Appearance is casual. Speech is Appropriate. Mood is euthymic. Affect is congruent. Thoughts are linear and logical. No evidence of psychosis. Client Response/Progress/Benefit: [] Pt was an engaged participant AEB listening attentively to others, taking notes, and providing feedback in small group discussions. Attentive during psychoeducation AEB by note taking and providing some input. Pt worked along with peers in small groups to define inappropriate guilt and appropriate guilt. Interactive discussion on examples of both inappropriate and appropriate guilt. Pt able to connect impact inappropriate guilt can have on MH. Benefited from increased awareness of guilt and the differences between appropriate and inappropriate guilt. Will continue in IOP to reinforce use of healthy coping skills, challenge distorted thought patterns, build confidence, and prevent decompensation.
--- NOTE | 2023-04-25 11:15 | BH.SGPN.GN ---
Behaviors/Verbalizations/Mental Status: []Pt alert and oriented, casually dressed and groomed. Eye contact good. Motor activity appropriate. Speech within normal limits. Affect congruent, mood content. Thoughts linear, logical, no signs of hallucinations or delusions. Client Response/Progress/Benefit: [] Pt engaged participant AEB listening attentively to others and providing input throughout group. Pt worked within their small group to identify strategies to manage inappropriate guilt. Shared a personal example of inappropriate guilt as blaming herself for her marriage failing. Insight this cues a fear of not being enough and results in difficulties developing her independence. Pt wants to work on combatting inappropriate guilt by challenging distortions, improving use of behavior activation skills, and focusing on self-compassion. Pt seemed to benefit from learning about strategies to manage appropriate and inappropriate guilt. Pt will continue IOP tx to reduce promote mood stability, reinforce healthy boundaries, and prevent decompensation. Narrative Note: []
--- NOTE | 2023-04-27 09:00 | BH.SGPN.GN ---
Behaviors/Verbalizations/Mental Status: [] Eye contact is good. Motor activity is appropriate. Appearance is casual. Speech is Appropriate. Mood is euthymic. Affect is full. Thoughts are linear and logical. No evidence of psychosis. Reviewed daily check in sheet and no reports of suicidal ideations or intent. Client Response/Progress/Benefit: [] Pt was an active participant in group discussion. Attentive. Daily symptom tracker notes 03/10 for depression. Mental health wins include completing tasks and following thought with difficult meeting regarding her divorce. She reports that while these meetings can be stressful and anxiety producing she feels more at ease and informed about the process. Overall sates her mood is getting better . Shared skills that she has been utilizing consistently and feels that along with support and medications she is feeling is hopeful. Continues to have significant psychosocial stressors. Progress noted per pt report. Benefited from group support, encouragement, and feedback. Will continue in IOP to maintain gains, prevent decompensation, and improve functioning. Narrative Note: []
--- NOTE | 2023-04-27 10:10 | BH.SGPN.GN ---
Behaviors/Verbalizations/Mental Status: []Pt alert and oriented, casual appearance. Eye contact good. Motor activity appropriate. Speech within normal limits. Affect congruent, mood euthymic. Thoughts linear, logical, no signs of hallucinations or delusions. Client Response/Progress/Benefit: [] Client engaged participant AEB completing self-assessment worksheet and providing input throughout discussion. Client completed worksheet identifying current self-care practices and what self-care activities client wants to start using. Client selected emotional and social self-care to begin practicing more consistently. Client plans to do this by continuing to utilize support network and take alone time for her. Appeared to benefit from completing the self-care evaluation and gaining insights into current self-care practices, as well as identifying areas in which client would like to improve upon. Client will continue IOP tx to promote use of healthy coping skills, improve confidence, and prevent decompensation.
--- NOTE | 2023-04-27 11:10 | BH.SGPN.GN ---
Behaviors/Verbalizations/Mental Status: []Pt alert and oriented, appearance appropriate. Eye contact good. Motor activity appropriate. Speech within normal limits. Affect congruent, mood anxious and dysthymic. Thoughts linear, logical, no signs of hallucinations or delusions. Client Response/Progress/Benefit: [] Client engaged participant AEB completing self-assessment worksheet and providing input throughout discussion. Client completed worksheet identifying current self-care practices and what self-care activities client wants to start using. Client selected physical, emotional, and social self-care to begin practicing more consistently. Client plans to do this by being more consistent with daily yoga, learning her emotional triggers, and asking for help. Appeared to benefit from completing the self-care evaluation and gaining insights into current self-care practices, as well as identifying areas in which client would like to improve upon. Client will continue IOP tx to promote skill application, maintain mood stability, and prevent decompensation. Narrative Note: []
--- NOTE | 2023-05-01 09:05 | BH.SGPN.GN ---
Behaviors/Verbalizations/Mental Status: [Patient was alert and oriented, appropriately dressed and groomed. Eye contact was good, motor activity normal, speech within normal limits. Affect congruent, mood tried. Thoughts linear, logical, no signs of hallucinations or delusions. Reviewed Patients symptom tracker and the patient reports depressed mood, anxiety/panic attacks, agitation/irritability/anger, self-harm urges, and thoughts/risk of suicide within normal limits.] Client Response/Progress/Benefit: [Patient was engaged and open to the discussion. Patient reported her mood to be ?tired?. Patient stated her fist win is that it has been a full week since she has had a panic/anxiety attack. She shared that this could be because she has been identifying the triggers that give them to her. 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 Patient stated her second win was that she had a good weekend with her daughters and has been trying to establish a new routine for them to all have. Patients? stressor is her separation from her ex and the process of getting a divorce. Patient was interactive and respectful with other group members about their mental wins and stressors. Patient benefited from the discussion by listening to feedback and giving input on her peer?s stressors and mental health wins. Patient will continue with IOP treatment to help develop healthy skills, promote mood stability, and improve distress tolerance.] Narrative Note: []
--- NOTE | 2023-05-01 10:10 | BH.SGPN.GN ---
Behaviors/Verbalizations/Mental Status: [] Eye contact is good. Motor activity is appropriate. Appearance is casual. Speech normal. Mood is euthymic. Affect is congruent. Thoughts are linear and logical. No evidence of psychosis. Client Response/Progress/Benefit: [] Client was an active participant in group discussion and participated in activity. Attentive during psychoeducation on resilience. Participated in interactive discussion with peers on the definition of resilience and where it comes from . Group identified that resiliency can be impacted by; past experiences, learned behaviors, and trauma. Group also worked together to identify the benefits of being resilient and how it is related to mental health which included having more uziel and becoming stronger. Able to relate experiential activity of group juggle to topics of resilience. Worked well with peers in small group in which they identified factors that contribute to resilience. Benefited from increased awareness of resilience and the factors that contribute to building resilience. Will continue in IOP to prevent decompensation and increase healthy thought patterns. Narrative Note: []
--- NOTE | 2023-05-01 11:10 | BH.SGPN.GN ---
Behaviors/Verbalizations/Mental Status: [] Client alert and oriented, neatly dressed and groomed. Eye contact fair. Motor activity appropriate. Speech within normal limits. Affect congruent, mood euthymic. Thoughts linear, logical, no signs of hallucinations or delusions Client Response/Progress/Benefit: [] Client responded well to session AEB completing the resilience worksheet provided. Client actively participated in the discussion and worked cooperatively with group to identify strategies to enhance each of the components discussed. Client reports belief they already use resilience trait of ?making connections.? Client discussed that they could work on a positive self view. Client seemed to benefit from discussing strategies for improving personal resilience and identifying resilience traits client already possesses. Will continue IOP tx to prevent decompensation and increase overall functioning. Narrative Note: []
--- NOTE | 2023-05-02 09:00 | BH.SGPN.GN ---
Behaviors/Verbalizations/Mental Status: [] Eye contact is good. Motor activity is appropriate. Appearance is casual. Speech is Appropriate. Mood is depressed/irritable. Affect is congruent. Thoughts are linear and logical. No evidence of psychosis. Reviewed daily check in sheet and no reports of suicidal ideations or intent. Client Response/Progress/Benefit: [] Pt was an active participant in group discussion. Attentive. Daily symptom tracker notes 3/5 for irritability and 2/5 for depression. Pt shared that nights are getting easier . In the recent past she struggles with ruminating, crying spells, anxiety, and negative thoughts at night which impacted her sleep. She developed and has been consistently applying a healthy routine at night and currently I'm looking forward to nights . She shared her current routine with the group. She has also drastically reduced her caffeine intake which has improved sleep and decreased anxiety. She is set to discharge tomorrow and states I'm OK with it and I'm not scared Increased confidence in herself and has a solid aftercare plan. 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 Progress noted. Benefited from group support, encouragment, and feedback. Will continue in IOP to maintain gains. Narrative Note: []
--- NOTE | 2023-05-02 10:15 | BH.SGPN.GN ---
Behaviors/Verbalizations/Mental Status: []Pt alert and oriented, casually dressed and groomed. Eye contact good. Motor activity appropriate. Speech within normal limits. Affect congruent, mood content, anxious. Thoughts linear, logical, no signs of hallucinations or delusions. Client Response/Progress/Benefit: [] Pt responded well to session AEB contributing to small group discussion, taking notes, and listening attentively to others. Group discussed the benefits of managed anger and anger as a secondary emotion. Pt shared perspective on personal benefits of anger as promoting healthy change. Pt completed worksheet on anger triggers and personal warning signs of anger. Pt identified a common trigger as feeling overwhelmed or wronged. Appeared to benefit from increased knowledge of the anger cycle as well as personal triggers. Will continue IOP tx to promote mood stability, reduce distorted thought patterns, and improve daily functioning. Narrative Note: []
--- NOTE | 2023-05-02 11:15 | BH.SGPN.GN ---
Behaviors/Verbalizations/Mental Status: []Client alert and oriented, casually dressed and groomed. Eye contact good. Motor activity appropriate. Speech within normal limits. Affect congruent, mood euthymic, anxious, and sad. Thoughts linear, logical, no signs of hallucinations or delusions. Client Response/Progress/Benefit: []Pt was engaged throughout AEB contributing to group discussion and self-reflection. Group finished processing cues to anger worksheet. Pt contributed as group brainstormed healthy coping skills for better managing anger which included: music, walking/exercise, taking a break, grounding tools, reflection, and journaling. Pt identified personal anger cycle able to make connections on how own thoughts/evaluations of a situation can worsen anger feelings. Pt shared this topic was difficult for her because she has recently been feeling more intense anger due to an outside stressor, which brings up uncomfortable thoughts adn feelings. Pt appeared to benefit from identifying different techniques to manage anger as well as gaining awareness of potential consequences of unmanaged anger. Pt to continue IOP to continue working on building healthy boundaries, improve confidence, and prevent decompensation.
--- NOTE | 2023-05-03 10:15 | BH.SGPN.GN ---
Behaviors/Verbalizations/Mental Status: [] Eye contact is good. Motor activity is appropriate. Appearance is casual. Speech is Appropriate. Mood is content and anxious. Affect is congruent. Thoughts are linear and logical. No evidence of psychosis. Client Response/Progress/Benefit: []Pt engaged participant AEB listening to others, engaging in activity, and providing feedback at times. Attentive during psychoeducation and provided insight into obstacles the impede mental wellness. Pt shared with group current mental health reality and desired mental health reality. Stated she would like to get to a place where she feels more confident in herself and her ability to independently care for herself and her children without constant second-guessing. Identified barriers to desired reality include: negative self-talk, distorted thoughts, poor self-confidence, and difficulties asking for/accepting help. Benefited from taking look at current mental health state and obstacles for progress. Pt to d/c from IOP tx and continue in outpatient tx to maintain mood stability, reduce unhealthy thinking and dependence on others, and prevent decompensation. Narrative Note: []
--- NOTE | 2023-05-03 11:15 | BH.SGPN.GN ---
Behaviors/Verbalizations/Mental Status: []Pt alert and oriented, neatly dressed and groomed. Eye contact good. Motor activity appropriate. Speech within normal limits. Affect congruent, mood euthymic. Thoughts linear, logical, no signs of hallucinations or delusions. Client Response/Progress/Benefit: []Pt participated in group discussion, drawing, and activity. Worked with group to identify strategies to help overcome barriers and obstacles to desired reality. Group developed strategies for the common barriers of avoidance, feeling burned out, unrealistic expectations, emotional reasoning, and difficulty asking for help. Identified personal barriers to desired reality and choose one obstacle to work on this week which was difficulty making decisions. 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 Pt seemed to benefit from group by identifying obstacles and solutions to desired reality. Will discharge from IOP tx today as pt has accomplished her tx goals and no longer meets criteria for IOP level of care. ??? Narrative Note: []
--- NOTE | 2023-05-03 11:32 | BH.MDN ---
Multi-Disciplinary Note Note 60-min Individual: Time Started:: 09:00 Date: 05/03/23 Purpose of session/treatment goals addressed:: Purpose of session was to identify treatment progress, complete maintenance plan, and solidify aftercare plans. Eye Contact:: Good Motor Activity:: Appropriate Appearance:: Neat Speech:: Appropriate Mood:: Euthymic and Other (Positive) Affect:: Full Thoughts:: Linear, Logical and No evidence of hallucinations/delusions noted Staff Interventions:: CBT techniques, discharge planning, strengths perspective, reviewed DSM-5 and other (maintenance plan) Client Response:: Client reported feeling ready for discharge today and more confident in her ability to maintain the gains she has made. Client shared when she first started she really needed the extra support because she was trying to adjust to such a significant life change. Client stated the program has been invaluable to her progress in helping her process the difficult change in her relationship status with her and all the changes that come along with that. Client stated the last couple weeks she has started to feel more confident in her ability to independently manage her emotions and has noted a significant decrease in her depressive and anxious symptoms. Client reported she still has moments in which she has a breakdown . However, client notes ability to recover from those breakdowns more effectively and quicker. Client noted significant treatment progress with decrease in depression, decrease in anxiety, improved ability to set boundaries, increase confidence in her decision making, and ability to function at home and work. 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 Client reported she can recover quicker from being triggered or emotional moments and her emotions no longer keep her from functioning at work. Client stated she feels more engaged and energetic when she is with her kids which has helped her be more active and encouraging them to do things outside the home. Client able to work with therapist to complete her maintenance plan in which she identified triggers, warning signs of mental health decline, self-care activities, and healthy coping strategies. Client stated she feels having solid aftercare will benefit her continued gains because she knows she has a long road ahead of her in the separation process with her . Risks/Concerns:: Denies suicide ideation, plan, or intention. Future oriented. Progress Toward Goals/Plan:: Progress noted as evidenced by client reporting improved daily functioning, improved functioning at work and home, decrease anxiety, and decrease in depression. Per DSM-V cross-cutting measure at discharge client's depression decreased by 63%, anxiety decreased by 82%, thoughts of hurting self decreased by 100%, and overall symptoms decreased by 76%. Client has an appointment scheduled with her outpatient therapist Olesya Dang on May 10. Client stated she also has an appointment with her nurse practitioner for medication management the second week of May. Client has made significant treatment progress since starting IOP and will discharge to day. Time Stopped:: 10:00
--- NOTE | 2023-05-03 13:21 | BH.DS_ITS ---
Discharge Summary Demographics Date of Admission:: 03/22/23 Discharge Date: 05/03/23 Presenting Problems at Admission:: The patient who has been for 14 years who has a history of depression and anxiety. She was referred by a friend for worsening symptoms in the past month. The patient's worsening of symptoms was triggered by her announcing that he was unhappy in their marriage and leaving 6 weeks ago. The patient was surprised by this and is having a hard time adjusting. She is having a hard time functioning at work and is having a hard time getting her activities of daily living accomplished at home. She admits to sadness and crying. She also endorses hopelessness, worthlessness, guilt and decreased concentration. She has low energy and decreased appetite and has lost 10 pounds in the past 6 weeks. Her sleep has decreased to about 3 to 5 hours a n ight and she is tired during the day. Discharge Diagnoses:: 1. Major depressive disorder, recurrent, severe without psychosis F33.2 2. Panic disorder Reason for Discharge:: Pt has made significant treatment progress, improved daily functioning, reports feeling ready for discharge and no longer meets criteria for [facility] level of care. Treatment Progress During Treatment & Response: Progress noted per DSM 5 cross-cutting measure as discharge which indicates a 62% decrease in depression, 82% decrease in anxiety, 100% decrease in thoughts of hurting self, and 76% decrease in overall mental health symptoms when compared to her intake DSM 5 scores. Pt reports improve ability to function at home and work. 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 Pt reports improved boundary setting, increased confidence in decisions, improved sleep, getting back involved in activities she used to enjoy, and increased engagement with her kids. Issues Still to be Addressed:: Client could benefit from continued reinforcement of her skills. Additionally, would benefit from support while navigating dissolution from and all the life changes that come with this change. Client also could benefit from working on building healthier core belief sets. Discharge Recommendations/Instructions:: Pt has appointment with outpatient, Olesya Dang counselor on 05/11/23. Pt has appointment with nurse practitioner for medication management second week of May. Discharge Handout
== END 2023-05-03 12:33 | disposition home or self-care (01) ==
LOC: BHIOP 07:50
PROVIDERS: PCP Registered Nurse; Referring Provider Psychiatry & Neurology Psychiatry; Visit Provider Psychiatry & Neurology Psychiatry
DX: F33.2 Major depressive disorder, recurrent severe without psychotic features (principal); F41.0 Panic disorder [episodic paroxysmal anxiety]
CPT/HCPCS: S9480; 90832; 90834; 90837; 90853